=== PATIENT | male | born 1965 | race Caucasian/White ===

== ENCOUNTER → 2017-01-21 | Outpatient (CLI) | payer OTHER | LOC: LAB 09:17 | DX: Z86.39 Personal history of other endocrine, nutritional and metabolic disease (principal) ==

== ENCOUNTER → 2017-05-05 | Outpatient (CLI) | payer OTHER ==
[2017-05-05 09:37] LABS: URINE APPEARANCE CLEAR; URINE BILIRUBIN NEGATIVE (NEGATIVE); URINE COLOR YELLOW; URINE GLUCOSE NEGATIVE (NEGATIVE); URINE KETONE NEGATIVE (NEGATIVE); URINE LEUKOCYTE ESTERASE 1+ (NEGATIVE); URINE NITRATE NEGATIVE (NEGATIVE); URINE PROTEIN(semi-quant) NEGATIVE (NEGATIVE); URINE UROBILINOGEN NORMAL (NORMAL)
[2017-05-05 09:38] LABS: URINE MUCUS PRESENT (NOT PRESENT)
[2017-05-05 09:40] LABS: URINE BLOOD TRACE (NEGATIVE)
== END ==
LOC: LAB 09:19
PROVIDERS: Family Medicine
DX: R39.89 Other symptoms and signs involving the genitourinary system (principal); R10.30 Lower abdominal pain, unspecified; M43.6 Torticollis